=== PATIENT | male | born 1980 | race Caucasian/White ===

== ENCOUNTER 2022-05-28 16:04 | Emergency (ER) | payer OTHER, BC ==
[2022-05-28 17:25] LABS: ANION GAP 8.9 meq/L (7-15); CHLORIDE,CL 102 mmol/L (98-107); SODIUM,NA 139 mmol/L (136-145)
[2022-05-28 17:29] LABS: ESTIMATED GFR 75 mL/min (>=60)
[2022-05-28] MEDS ORDERED: Bacitracin Oint 1 GM U/D Packet TOP ONE (17:34)
[2022-05-28] MEDS ORDERED: Ketorolac 30 MG/ML SDV IM ONE (17:35)
[2022-05-28 17:42] LABS: BARBITURATE SCREEN,URINE NEGATIVE (NEGATIVE); BENZODIAZEPINES SCREEN,URINE NEGATIVE (NEGATIVE); EDDP,URINE SCREEN NEGATIVE (NEGATIVE); TCA SCREEN,URINE NEGATIVE (NEGATIVE); THC SCREEN,URINE 50 NG/ML POSITIVE (NEGATIVE)
[2022-05-28 17:46] LABS: BUPRENORPHINE SCREEN,URINE NEGATIVE (NEGATIVE)
== END 2022-05-28 18:19 | disposition home or self-care (01) ==
LOC: LL.ED 16:04
DX: S22.31XA Fracture of one rib, right side, initial encounter for closed fracture (principal); S01.01XA Laceration without foreign body of scalp, initial encounter; S30.0XXA Contusion of lower back and pelvis, initial encounter; S50.12XA Contusion of left forearm, initial encounter; V49.40XA Driver injured in collision with unspecified motor vehicles in traffic accident, initial encounter; Y92.410 Unspecified street and highway as the place of occurrence of the external cause
CPT/HCPCS: 36415; 70450; 71101-RT; 73090-LT; 80053; 80305-QW; 80307; 81003; 83735; 85025; 96372; 99284; J1885